=== PATIENT | male | born 1945 | race Caucasian/White ===

== ENCOUNTER → 2023-10-11 10:01 | Outpatient (REF) | payer MEDICARE, SELFPAY | LOC: RAD 10:01 | PROVIDERS: ATTENDING PHYSICIAN Internal Medicine Cardiovascular Disease; FAMILY PHYSICIAN Family Medicine | DX: R07.9 Chest pain, unspecified (principal); R94.39 Abnormal result of other cardiovascular function study; Z82.49 Family history of ischemic heart disease and other diseases of the circulatory system; R07.2 Precordial pain; I10 Essential (primary) hypertension; I25.10 Atherosclerotic heart disease of native coronary artery without angina pectoris | CPT/HCPCS: 75574; Q9967 ==

== ENCOUNTER 2023-10-26 10:01 | Day surgery (SDC) | payer MEDICARE, SELFPAY ==
[2023-10-19 13:31] VITALS: BMI 29.8
[2023-10-19 14:04] LABS: % Basophils 0.4 % (0-2); % Eosinophils 5.2 % (0-6); % Immature Granulocytes 0.1 % (0-0.5); % Monocytes 6.6 % (1.7-9.3); % Neutrophils 54.7 % (42.2-75.2); Absolute Eosinophils 0.4 10^3/uL (0-0.7); Absolute Lymphocytes 2.5 10^3/uL (1.2-3.4); Absolute Monocytes 0.5 10^3/uL (0.1-0.6); Absolute Neutrophils 4.2 10^3/uL (1.4-6.5); Hematocrit 42.6 % (39.0-52.0); Hemoglobin 14.4 g/dL (13.0-18.0); Mean Corp Hgb Conc. 33.8 g/dL (33.0-37.0); Mean Corpuscular Hgb 28.9 pg (27.0-31.0); Mean Corpuscular Volume 85.5 fL (80.0-94.0); Mean Platelet Volume 10.7 fL (7.4-10.4); Nucleated Red Blood Cells % 0 % (-); Platelet Count 240 10^3/uL (130-400); Red Blood Cell Count 4.98 10^6/uL (4.70-6.10); Red Cell Dist. Width 13.3 % (11.5-14.5); White Blood Cell Count 7.6 10^3/uL (4.8-10.8)
[2023-10-19 14:22] LABS: ALT (SGPT) 30 U/L (0-50); AST (SGOT) 36 U/L (17-59); Albumin 4.1 g/dl (3.5-5.0); Alkaline Phosphatase 73 U/L (38-126); Blood Urea Nitrogen 19 mg/dl (9-20); Calcium 9.6 mg/dl (8.4-10.2); Carbon Dioxide 29 mmol/L (22-30); Chloride 103 mmol/L (98-107); Estimated Creatinine Clearance 60 ml/min; Glucose 93 mg/dl (70-99); Potassium 4.5 mmol/L (3.5-5.1); Sodium 139 mmol/L (135-145); Total Bilirubin 0.4 mg/dl (0.2-1.3); Total Protein 6.7 g/dl (6.3-8.2); eGFR > 60.00
[2023-10-26] VITALS (8 sets, daily range): BP systolic 82–144; BP diastolic 57–96
--- NOTE | 2023-10-26 13:16 | ITS.CL.CATH ---
Electrical And Instrumentation Manager - Catheterization
Cardiac Catheterization
Procedure Report:
CARDIAC CATHETERIZATION REPORT
Date of Procedure: 10/26/2023
Referring: Slava Weinberg DO
Indication: Angina with abnormal coronary CTA
HEMODYNAMIC DATA
AO: 123/58
LV: 123/17
LEFT VENTRICULOGRAPHY: Normal left ventricular wall motion with EF 58%
CORONARY ANGIOGRAPHY
Dominance: Right
Left Main: Normal
LAD: Mild luminal irregularities
Circumflex: There is a very large ramus intermedius branch with mild luminal irregularities. The first obtuse marginal branch has tandem 80% and 70% mid stenoses. The circumflex terminates with a small bifurcating OM 2
RCA: Dominant vessel with mild luminal irregularities in the RCA proper. The medium to large RPDA has 40% proximal and 60-70% mid stenoses.
Angioplasty: At the conclusion of the diagnostic study, we proceeded with PCI of the OM1 disease which was likely the cause of his angina. Heparin was used for anticoagulation. Plavix 60 mg was administered at the procedure conclusion. A 6 Khmer
JL 4 guide catheter was used. A BMW wire was advanced into the distal segment of OM1. Direct stenting with a 2.25 x 23 Xience BHARAT deployed at 14 fidelina was followed by postdilatation with a 2.5 NC trek to 19 fidelina. The final angiographic result was
outstanding. There were no procedural complications.
Closure Device: None-the procedure was performed via the right radial artery. The Rao's test was normal prior to the procedure.
Radiation (mGy): 379
DAP (cm2.Gy): 26.2
Fluoroscopy time: 5.6 minutes
CONCLUSIONS
1: Normal left ventricular function with EF 58%
2: Multivessel CAD as described
3. Successful stenting of tandem 80% and 70% OM1 lesions using 2.25 x 23 Xience BHARAT with outstanding result
4. Recommend dual antiplatelet therapy for 6-12 months then aspirin monotherapy. Continue aggressive risk factor modification efforts including statin therapy to achieve LDL less than 70
Copy to: Slava Weinberg DO, Dony Barrera DO
Ranjith Doan MD, FACC, [facility]
[2023-10-26 14:57] LABS: ACT-LR - POC > 397 Seconds (116-155)
--- NOTE | 2023-10-26 16:13 | W.PN.UPDATE ---
Update Note
Progress Note Update
77 yo WM s/p PCI OM1 x 1 Bharat (same day). He feels good, no cp, sob, julissa diet, voiding, R rad site with TR band, no HT, EKG SR with PAC's no ST elevation. He will be on DAPT ASA/Plavix. Cardiac rehab c/s. He will increase his rosuvastatin to 20
daily. He will f/u Dr. Weinberg in 2-4 weeks, a message was left with his medical assistant secretary to call pt with a follow up appointment. He is for d/c home after 6pm if rad site stable.
CONCLUSIONS
1: Normal left ventricular function with EF 58%
2: Multivessel CAD as described
3. Successful stenting of tandem 80% and 70% OM1 lesions using 2.25 x 23 Xience BHARAT with outstanding result
4. Recommend dual antiplatelet therapy for 6-12 months then aspirin monotherapy. Continue aggressive risk factor modification efforts including statin therapy to achieve LDL less than 70
Copy to: Slava Weinberg DO, Dony Barrera,
== END 2023-10-26 18:00 | disposition home or self-care (01) ==
LOC: CATH 10:01
PROVIDERS: ATTENDING PHYSICIAN Internal Medicine Cardiovascular Disease; FAMILY PHYSICIAN Family Medicine; OTHER PHYSICIAN Internal Medicine Cardiovascular Disease
DX: I25.119 Atherosclerotic heart disease of native coronary artery with unspecified angina pectoris (principal); I10 Essential (primary) hypertension; E78.5 Hyperlipidemia, unspecified; Z87.891 Personal history of nicotine dependence; R07.89 Other chest pain; E66.9 Obesity, unspecified; Z68.29 Body mass index [BMI] 29.0-29.9, adult; G47.33 Obstructive sleep apnea (adult) (pediatric); Z90.79 Acquired absence of other genital organ(s); Z85.46 Personal history of malignant neoplasm of prostate; E03.9 Hypothyroidism, unspecified; Z79.82 Long term (current) use of aspirin; Z79.899 Other long term (current) drug therapy; Z79.890 Hormone replacement therapy; Z79.02 Long term (current) use of antithrombotics/antiplatelets; I49.3 Ventricular premature depolarization; Z90.49 Acquired absence of other specified parts of digestive tract
CPT/HCPCS: 36415; 80053; 85025; 85347; 93005; 93458; C1725; C1769; C1874; C1894; C9600; Q9967